=== PATIENT | female | born 1990 | race Hispanic/Latino ===

== ENCOUNTER 2017-05-26 21:29 | Emergency (ER) | payer SELFPAY ==
[2017-05-26 22:38] LABS: BILIRUBIN,URINE Negative (NEGATIVE); COLOR,URINE Dark Yellow (YELLOW); GLUCOSE, URINE (UA) Negative (NEGATIVE); KETONES,URINE 15 mg/dL (NEGATIVE); LEUKOCYTE ESTERASE ,URINE Trace (NEGATIVE); NITRATE,URINE Negative (NEGATIVE); OCCULT BLOOD,URINE Large (NEGATIVE); PROTEIN,URINE POS 1+ (NEGATIVE)
[2017-05-26] MEDS ORDERED: HYOSCYAMINE SULFATE 0.125 MG TAB.SUBL SL ONE (22:40)
[2017-05-26] MEDS ORDERED: ONDANSETRON ODT 4 MG TAB ONE (22:40)
[2017-05-26 22:41] LABS: APPEARANCE,URINE SLIGHTLY CLOUDY (CLEAR)
[2017-05-26 22:44] LABS: HCG,QUAL RESULT NEGATIVE (NEGATIVE)
[2017-05-26 22:50] LABS: BACTERIA,URINE Few /HPF (None Seen); MUCUS,URINE Few LPF (None Seen); RBC,URINE 26-50 /HPF (0-1); SQUAMOUS EPITHELIAL CELL,UR Moderate /LPF (0-2)
[2017-05-26] MEDS ORDERED: PROMETHAZINE HCL 25 MG/ML 1ML AMPULE IM ONE (23:36)
== END 2017-05-27 00:58 | disposition home or self-care (01) ==
LOC: EDH 21:29
DX: K52.9 Noninfective gastroenteritis and colitis, unspecified (principal)
CPT/HCPCS: 81001; 81025; 96372; 99284; J2550